=== PATIENT | female | born 1975 | race Caucasian/White ===

== ENCOUNTER 2017-03-26 22:28 | Emergency (ER) | payer MEDICAID, SELFPAY ==
[2017-03-26 22:29] VITALS: BP 148/89; PULSE 99; RESP 16; TEMP 36.7; O2SAT 98; BMI 32.5
[2017-03-26 23:17] VITALS: BP 145/78; PULSE 75; RESP 14; O2SAT 99
[2017-03-26 23:47] LABS: Bacteria 0 SEEN /hpf (None Seen); Mucous, Urine 0 SEEN /hpf (<or=2+)
[2017-03-26 23:51] LABS: Color, Urine Yellow (Yellow); Glucose, Dipstick Normal (Normal); Ketone-Dipstick 5 mg/dl (Negative); Leukocyte Esterase-Dipstick 500 /ul (Negative); Nitrite-Dipstick Negative (Negative); Occult Blood-Urine 25 /ul (Negative); Protein-Dipstick 30 mg/dl (Negative); Urine Bilirubin Dipstick Negative (Negative); Urine Clarity Sl. Cloudy (Clear); Urine Urobilinogen Normal (Normal)
[2017-03-26 23:58] LABS: Red Blood Cells-Urine 5-10 SEEN /hpf (0-5); Squamous Epithelial Cells - UA 50-100 SEEN /hpf (5-10); White Blood Cells 50-100 SEEN /hpf (0-5)
--- NOTE | 2017-03-27 00:14 | ED.DCSUM_ITS ---
- ER Visit Summary Date of Service: 03/27/17 Chief Complaint: [] Vaginitis History of Present Illness: The patient is a 41 F [] complaining of discomfort in the vaginal area consistent with previous yeast infection. Reports thin/ white discharge. Denies possibility of sexually transmitted disease. Denies vaginal bleeding. Reports mild dysuria. Denies fevers. No other complaints at this time. The patient does report using a new body wash after the onset of symptoms. Physical Examination: [] Afebrile, vital signs stable. Abdomen is soft nontender. Remainder of exam is unremarkable. Pelvic exam is deferred at this time. Test Results: [] Urinalysis negative. Dirty catch. Emergency Department Course and Treatment: [] Patient given Diflucan orally in the emergency department and encouraged to follow-up with her primary care physician. Treatment Plan: [] Follow-up with primary care physician. Disposition: [] Discharge, stable. Impression: [] Yeast vaginitis This note was generated with [employer] dictation software. It may contain incorrect words, spelling, and punctuation that were not noted in review of the chart prior to signing ED Disposition - Plan for ED Patient: Chief Complaint: Female C/O Referrals: Care Physician,No Primary [Primary Care Provider] -
--- NOTE | 2017-03-27 00:14 | ED.DEP ---
ED Disposition - Plan for ED Patient: Disposition: Home or Assisted Living Chief Complaint: Female C/O Instructions: Vaginal Infection: Yeast (Candidiasis) Referrals: Care Physician,No Primary [Primary Care Provider] -
[2017-03-27] MEDS: Fluconazole 100 MG Tablet 400 MG PO (00:17)
[2017-03-27 00:27] VITALS: PULSE 87; RESP 16; O2SAT 87
== END 2017-03-27 00:28 | disposition home or self-care (01) ==
PROVIDERS: Emergency Provider Emergency Medicine
DX: B37.3 Candidiasis of vulva and vagina (principal); Z72.0 Tobacco use
CPT/HCPCS: 81001; 99283

== ENCOUNTER 2017-03-31 22:36 | Emergency (ER) | payer MEDICAID, SELFPAY ==
[2017-03-31 22:40] VITALS: BP 163/98; PULSE 94; RESP 16; TEMP 36.1; O2SAT 100; BMI 45.0
[2017-03-31] MEDS: Fluconazole 100 MG Tablet 150 MG PO (22:53)
[2017-03-31] MEDS: Clindamycin HCl 150 MG Capsule 450 MG PO (22:53)
--- NOTE | 2017-03-31 22:53 | ED.DCSUM_ITS ---
- ER Visit Summary Date of Service: 03/31/17 Chief Complaint: Dental pain History of Present Illness: The patient is a 41 F with right sided dental pain. No trouble breathing, talking, or swallowing. No fever or systemic symptoms. She has follow-up with a dentist. She also complains of a yeast infection. Physical Examination: Vital signs unremarkable. Patient is nontoxic and in no acute distress. Sitting and breathing comfortably. Patient has diffuse dental decay, also involving the right mandibular molars. No sign of abscess. No tongue elevation. No trismus. Airway intact. Skin appears normal. No lymphadenopathy or meningeal findings. Test Results: None indicated Emergency Department Course and Treatment: Patient treated with clindamycin and Diflucan. Follow-up with dental. She may use [id number] remedies for pain. Treatment Plan: As above Disposition: Discharged Impression: 1. Dental pain 2. Vaginal candidiasis This note was generated with [employer] dictation software. It may contain incorrect words, spelling, and punctuation that were not noted in review of the chart prior to signing ED Disposition - Plan for ED Patient: Chief Complaint: Dental Referrals: Care Physician,No Primary [Primary Care Provider] -
--- NOTE | 2017-03-31 22:54 | ED.DEP ---
ED Disposition - Plan for ED Patient: Chief Complaint: Dental Instructions: ED Tooth Pain Prescriptions: Fluconazole [Diflucan] 150 mg PO X1 #1 tab Clindamycin [Cleocin] 450 mg PO TID #63 cap Additional Instructions: Follow up with your dentist
[2017-03-31 23:01] VITALS: RESP 16
--- NOTE | 2017-03-31 23:01 | ED.RN ---
REVIEWED D/C INSTRUCTIONS, FOLLOW UP CARE, PRESCRIPTIONS, AND S/S THAT WOULD WARRANT A RETURN TO THE ED WITH PT. PT VERBALIZED AN UNDERSTANDING AND DENIES FURTHER QUESTIONS FOR THIS RN. PT SKIN P/W/D, RESP EVEN AND UNLABORED, PT A&O X 3, NO DISTRESS NOTED. PT AMBULATED OUT OF ED, GAIT STEADY.
== END 2017-03-31 23:03 | disposition home or self-care (01) ==
PROVIDERS: Emergency Provider Emergency Medicine
DX: K02.9 Dental caries, unspecified (principal); B37.3 Candidiasis of vulva and vagina; Z72.0 Tobacco use
CPT/HCPCS: 99284

== ENCOUNTER 2017-04-26 12:17 | Emergency (ER) | payer MEDICAID, SELFPAY ==
[2017-04-26 12:19] VITALS: BP 160/86; PULSE 91; RESP 18; TEMP 36.3; O2SAT 95; BMI 38.7
[2017-04-26] MEDS: Azithromycin 250 MG Tablet 2000 MG PO (13:09)
[2017-04-26 13:10] LABS: Mucous, Urine 0 SEEN /hpf (<or=2+)
--- NOTE | 2017-04-26 13:15 | ED.DCSUM_ITS ---
- ER Visit Summary Date of Service: 04/26/17 Chief Complaint: Vaginal discharge History of Present Illness: The patient is a 41 F with vaginal discharge on and off for weeks. She was recently treated for Trichomonas a couple weeks ago but her symptoms returned. She has discharge with a foul odor. Denies any other associated symptoms. Physical Examination: Vital signs unremarkable. Patient is alert and oriented. No acute distress. Abdomen soft and nontender. Skin appears normal. Pelvic exam was deferred. Test Results: Urinalysis, test, gonorrhea and chlamydia testing pending. Emergency Department Course and Treatment: We contacted the lab. They were able to test for gonorrhea, chlamydia, and Trichomonas with urine testing. Results are pending. Patient was treated with azithromycin and Flagyl while awaiting results. Urinalysis is concerning for UTI. Culture was sent. The remaining cultures are also pending. Will treat the patient with Flagyl and Macrobid. She will be covered for gonorrhea, chlamydia, BV, trichomonas, and UTIs. She will be referred to OB for further care. Treatment Plan: As above Disposition: Discharged Impression: 1. Vaginal discharge 2. UTI This note was generated with [employer] dictation software. It may contain incorrect words, spelling, and punctuation that were not noted in review of the chart prior to signing ED Disposition - Plan for ED Patient: Chief Complaint: Female C/O Referrals: Care Physician,No Primary [Primary Care Provider] -
[2017-04-26 13:16] LABS: Internal QC Validated? YES +Cl - CLEAR BKGD; Pregnancy, Urine Negative Negative
[2017-04-26 13:20] LABS: Color, Urine Yellow (Yellow); Glucose, Dipstick Normal (Normal); Ketone-Dipstick 5 mg/dl (Negative); Leukocyte Esterase-Dipstick 500 /ul (Negative); Nitrite-Dipstick Negative (Negative); Occult Blood-Urine 50 /ul (Negative); Protein-Dipstick 30 mg/dl (Negative); Specific Gravity, Urine 1.025 (1.002-1.030); Urine Clarity Clear (Clear); Urine Urobilinogen 1 mg/dl (Normal)
[2017-04-26 13:28] LABS: Urine Bilirubin Dipstick 1 mg/dL (Negative)
[2017-04-26 13:32] LABS: Red Blood Cells-Urine 0-5 SEEN /hpf (0-5); White Blood Cells >100 SEEN /hpf (0-5)
[2017-04-26 13:33] LABS: Bacteria 2+ /hpf (None Seen); Squamous Epithelial Cells - UA 5-10 SEEN /hpf (5-10)
--- NOTE | 2017-04-26 14:41 | ED.DEP ---
ED Disposition - Plan for ED Patient: Chief Complaint: Female C/O Instructions: ED UTI Cystitis Female Prescriptions: Metronidazole [Flagyl] 500 mg PO Q12H #14 tab Nitrofurantoin Macrocrystals [Macrobid] 100 mg PO Q12 #14 cap Referrals: Jordon Silverman MD [STAFF PHYSICIAN] -
[2017-04-26 14:46] VITALS: BP 125/79; PULSE 74; RESP 22; O2SAT 98
--- NOTE | 2017-04-26 14:46 | ED.RN ---
THIS NURSE REVIEWED D/C INSTRUCTIONS WITH PT. PT VERBALIZED UNDERSTANDING OF INSTRUCTIONS. PT DENIES FURTHER NEEDS OR QUESTIONS AT THIS TIME. PT AMBULATES FROM ROOM ON OWN WITHOUT ASSISTANCE FROM STAFF
[2017-04-26 15:12] LABS: Chlamydia Trachomatis by PCR Negative (Negative); Neisserai gonorrhoeae by PCR Negative (Negative); Probe Check PASS; Sample Adequacy Control PASS; Specimen Processing Control PASS
== END 2017-04-26 14:48 | disposition home or self-care (01) ==
PROVIDERS: Emergency Provider Emergency Medicine
DX: N89.8 Other specified noninflammatory disorders of vagina (principal); N30.90 Cystitis, unspecified without hematuria; B96.89 Other specified bacterial agents as the cause of diseases classified elsewhere; Z72.0 Tobacco use
CPT/HCPCS: 81001; 81025; 87086; 87491; 87591; 99283

== ENCOUNTER 2017-08-03 11:40 | Emergency (ER) | payer MEDICAID, SELFPAY ==
--- NOTE | 2017-08-03 11:40 | DT_ITS ---
This patient was seen during an EMR downtime August 01, 2017 - August 08, 2017. This patient may have a combination of paper and electronic documentation or all paper documentation. All documentation is viewable within the e-chart portion of [facility] for each patient visit.
[2017-08-06 09:32] LABS: Basophil% 0.4 % (0-1); Eosinophils% 1.7 % (0-5); Hematocrit 46.4 % (37-47); Hemoglobin 14.8 g/dl (12.0-15.0); Lymphocyte % 29.5 % (19-41); Mean Corp Hgb Conc 31.9 g/gl (32-36); Mean Corpuscular Hgb 30.5 pg (27.0-32.0); Mean Corpuscular Volume 95.5 fL (81-99); Mean Platelet Vol. 11.6 fl (6.2-12.0); Monocyte% 7.3 % (0-10); Neutrophil % 60.8 % (47-70); POSITIVE COUNT NO; POSITIVE DIFFERENTIAL NO; POSITIVE MORPHOLOGY NO; Platelet Count 279 K/mm3 (150-450); RBC Distribution Width CV 14.3 % (11.6-14.6); RBC Distribution Width SD 48.8 fl (35.1-43.9); Red Blood Count 4.86 M/mm3 (4.2-5.4); White Blood Count 10.2 K/mm3 (4.4-11.0)
[2017-08-06 09:33] LABS: Absolute Lymphocyte Count 3.01 X10^3/ul (0.83-4.51); Absolute Neutrophil Count 6.2 X10^3/uL (2.0-7.7); Basophil# 0.04 X10^3/uL; Eosinophil# 0.17 X10^3/uL; Lymphocyte # 3.01 X10^3/ul (4.0); Monocyte# 0.74 X10^3/uL; Neutrophil # 6.21 X10^3/uL (2.7-7.7)
[2017-08-06 10:03] LABS: Anion Gap 5 (5-15); BUN 12 mg/dL (7-18); Calcium,Total 8.6 mg/dL (8.5-10.1); Chloride 109 mmol/L (98-107); Creatinine, Serum 0.86 mg/dL (0.55-1.02); EST Glomerular Filtration Rate 78 mL/min (>60); Est Glom Filt Rate - Afr Amer 95 mL/min (>60); Glucose 118 mg/dL (74-106); Potassium 4.1 mmol/L (3.5-5.1); Sodium Level 140 mmol/L (136-145); hCG Titer Quant., Serum < 1 mIU/mL (<9 non-preg)
[2017-08-06 11:04] LABS: Mucous, Urine 0 SEEN /hpf (<or=2+); White Blood Cells 0 SEEN /hpf (0-5)
[2017-08-06 11:10] LABS: Bacteria RARE /hpf (None Seen); Color, Urine Yellow (Yellow); Glucose, Dipstick NEGATIVE (Normal); Ketone-Dipstick Negative (Negative); Leukocyte Esterase-Dipstick 25 /ul (Negative); Nitrite-Dipstick Negative (Negative); Occult Blood-Urine 250 /ul (Negative); Protein-Dipstick Negative (Negative); Red Blood Cells-Urine 5-10 SEEN /hpf (0-5); Specific Gravity, Urine 1.015 (1.002-1.030); Squamous Epithelial Cells - UA 0-5 SEEN /hpf (5-10); Urine Bilirubin Dipstick Negative (Negative); Urine Clarity Clear (Clear); Urine Urobilinogen Normal (Normal)
== END 2017-08-03 14:00 | disposition home or self-care (01) ==
LOC: ED 08-05 12:29
PROVIDERS: Emergency Provider Emergency Medicine
DX: N92.0 Excessive and frequent menstruation with regular cycle (principal); F17.200 Nicotine dependence, unspecified, uncomplicated
CPT/HCPCS: 80048; 81001; 84702; 85025; 96372; 99283; A4216

== ENCOUNTER 2017-11-25 09:31 | Emergency (ER) | payer MEDICAID, SELFPAY ==
[2017-11-25 09:31] VITALS: BP 211/112; PULSE 94; RESP 18; TEMP 36.9; O2SAT 99; BMI 46.0
--- NOTE | 2017-11-25 09:39 | ED.VISSUMM ---
- ER Visit Summary Date of Service: 11/25/17 Chief Complaint: Dental pain History of Present Illness: The patient is a 42 F presents to the emergency department dental pain. Patient had the symptoms for the past 24 hours. She states she is not seen a dentist in about a year. She states that she began with a dull ache in her left lower jaw yesterday. It got better overnight and then worsened this morning. She describes hot and cold sensitivity. She is tried ibuprofen and Tylenol with some relief. She denies any change in voice. She denies any trouble speaking or swallowing. She has no history of immunosuppression. Physical Examination: Exam is relatively unremarkable. Patient has widespread dental disease. There is large cavity of tooth 18. There is tenderness to percussion. There is no definitive abscess. The submental space is soft. TMs are clear. Neck is supple. Test Results: [] Emergency Department Course and Treatment: The patient was initially hypertensive. I do feel that this is likely secondary to pain. Her repeat blood pressure was 165/91 taken with a manual cuff. She had no chest pain. She had no dyspnea. She has definitive evidence of dental infection. I do not suspect a dangerous process. She has no evidence of Juan angina. The patient be placed on clindamycin. She will be discharged home. Treatment Plan: [] Disposition: Discharge Impression: 1. Dental pain secondary to periapical abscess This note was generated with [employer] dictation software. It may contain incorrect words, spelling, and punctuation that were not noted in review of the chart prior to signing ED Disposition - Plan for ED Patient: Chief Complaint: Dental Instructions: ED Abscess Dental Prescriptions: Clindamycin [Cleocin] 300 mg PO 4X/DAY #80 cap Referrals: Care Physician,No Primary [Primary Care Provider] -
== END 2017-11-25 09:53 | disposition home or self-care (01) ==
LOC: ED 09:50
PROVIDERS: Emergency Provider Emergency Medicine
DX: K04.7 Periapical abscess without sinus (principal); E66.9 Obesity, unspecified; Z68.42 Body mass index [BMI] 45.0-49.9, adult; Z72.0 Tobacco use
CPT/HCPCS: 99282

== ENCOUNTER 2018-03-14 10:47 | Emergency (ER) | payer MEDICAID, SELFPAY ==
[2018-03-14 10:47] VITALS: BMI 45.0
[2018-03-14 10:48] VITALS: BP 187/89; PULSE 104; RESP 18; TEMP 36.6; O2SAT 97; BMI 46.1
--- NOTE | 2018-03-14 11:04 | ED.VISSUMM ---
- ER Visit Summary Date of Service: 03/14/18 Chief Complaint: Vaginal bleeding and pelvic pain History of Present Illness: The patient is a 42 F who presents for vaginal bleeding and pelvic pain since yesterday. Patient believes she may be . Last period was 1 month ago and was abnormally heavy. Patient states her period was due 10 days ago and she did not have any bleeding until yesterday. She took a total of 4 tests, 2 that were positive and 2 that were negative. The last negative one was 2 days ago. The last positive one was sometime last week. Patient started spotting yesterday and then began having blood clots this morning. She is also having lower abdominal cramping pain. She has taken several naproxen since yesterday for this pain. She denies fever, chest pain, shortness of breath, urinary symptoms, diarrhea. She is . No other medical issues. Physical Examination: Vital signs: afebrile, hemodynamically stable, no hypoxia on room air General: well nourished, well developed, in no distress Skin: warm, dry, no rash, no pallor HEENT: normocephalic and atraumatic; PERRL, EOMI, moist mucous membranes Cardiovascular: regular rate and rhythm without murmurs, no peripheral edema, 2+ pulses all distal extremities Respiratory: No increased work of breathing, lungs are clear to auscultation bilaterally, no rales, rhonchi or wheezing Abdominal: Abdomen is soft, mild tenderness in the suprapubic region with normoactive bowel sounds, no guarding or rebound, no masses MSK: Moves all extremities, no deformities, normal strength Neuro: Awake and alert, oriented ?4. No facial droop, sensation and motor function intact and symmetric Test Results: Abnormal Lab Results 03/14/18 03/14/18 03/14/18 11:25 11:25 11:25 WBC 11.0 RBC 4.59 Hgb 14.7 Hct 44.6 MCV 97.2 MCH 32.0 MCHC 33.0 RDW 14.1 RDW Differential 48.7 H Plt Count 219 MPV 11.4 Immature Gran % (Auto) 0.400 Neut % (Auto) 66.5 Lymph % (Auto) 23.6 [place] % (Auto) 7.6 Eos % (Auto) 1.4 Baso % (Auto) 0.5 Absolute Neuts (auto) 7.3 Absolute Lymphs (auto) 2.59 Total Counted Not Reportable Differential Comment SCANNED HCG, Quant < 1 Blood Type A POSITIVE Emergency Department Course and Treatment: Patient presents with abdominal cramping and vaginal bleeding, concerned that she may be having a miscarriage. A beta hCG was performed and was less than 1. This is consistent with patient not being . Because she was due for her menstrual period 10 days ago, this is likely a late period. Patient left without her discharge paperwork and without as discussing the results of her testing. We attempted to call patient to let her know she was not but were unable to get hold of her. At this time I am unaware of her having called back. Treatment Plan: [] Disposition: [] Impression: Dysmenorrhea, menstruation This note was generated with [employer] dictation software. It may contain incorrect words, spelling, and punctuation that were not noted in review of the chart prior to signing ED Disposition - Plan for ED Patient: Disposition: Home or Assisted Living Chief Complaint: Instructions: ED Cramping Menstrual Referrals: Care Physician,No Primary [Primary Care Provider] -
[2018-03-14 11:41] LABS: Absolute Lymphocyte Count 2.59 X10^3/ul (0.83-4.51); Absolute Neutrophil Count 7.3 X10^3/uL (2.0-7.7); Basophil# 0.06 X10^3/uL; Basophil% 0.5 % (0-1); Eosinophil# 0.15 X10^3/uL; Eosinophils% 1.4 % (0-5); Hematocrit 44.6 % (37-47); Hemoglobin 14.7 g/dl (12.0-15.0); Lymphocyte # 2.59 X10^3/ul (4.0); Lymphocyte % 23.6 % (19-41); Mean Corpuscular Volume 97.2 fL (81-99); Mean Platelet Vol. 11.4 fl (6.2-12.0); Monocyte# 0.83 X10^3/uL; Monocyte% 7.6 % (0-10); Neutrophil # 7.29 X10^3/uL (2.7-7.7); Neutrophil % 66.5 % (47-70); Platelet Count 219 K/mm3 (150-450); RBC Distribution Width CV 14.1 % (11.6-14.6); RBC Distribution Width SD 48.7 fl (35.1-43.9); Red Blood Count 4.59 M/mm3 (4.2-5.4)
[2018-03-14 11:42] LABS: Differential Indicated SCAN CRITERIA MET; POSITIVE COUNT NO; POSITIVE DIFFERENTIAL NO; POSITIVE MORPHOLOGY YES
[2018-03-14 12:05] LABS: hCG Titer Quant., Serum < 1 mIU/mL (<9 non-preg)
[2018-03-14 12:15] LABS: Differential Comment SCANNED
--- NOTE | 2018-03-14 12:24 | ED.RN ---
pt has left. she stated she needed to go get her son from school. (-) and Dr. Segovia stated she was not planning to do pelvic exam based on that. will attempt to call pt with results.
--- NOTE | 2018-03-14 12:28 | ED.RN ---
attempt made x2 to reach pt on her cell phone listed. unable at this time.
--- NOTE | 2018-03-14 12:31 | ED.DEP ---
ED Disposition - Plan for ED Patient: Disposition: Home or Assisted Living Chief Complaint: Instructions: ED Cramping Menstrual Referrals: Care Physician,No Primary [Primary Care Provider] -
== END 2018-03-14 12:34 | disposition home or self-care (01) ==
PROVIDERS: Emergency Provider Emergency Medicine
DX: N94.6 Dysmenorrhea, unspecified (principal); Z72.0 Tobacco use
CPT/HCPCS: 36415; 84702; 85025; 86900; 99282

== ENCOUNTER 2021-01-18 22:17 | Emergency (ER) | payer MEDICAID, SELFPAY ==
[2021-01-18 22:18] VITALS: BP 160/79; PULSE 102; RESP 18; TEMP 36.5; O2SAT 97; BMI 41.3
[2021-01-18 22:48] LABS: Mucous, Urine 0 SEEN /hpf (<or=2+)
[2021-01-18 22:51] LABS: Color, Urine Yellow (Yellow); Glucose, Dipstick 1000 mg/dl (Normal); Ketone-Dipstick Negative (Negative); Leukocyte Esterase-Dipstick 500 /ul (Negative); Nitrite-Dipstick Positive (Negative); Occult Blood-Urine 150 /ul (Negative); Protein-Dipstick 30 mg/dl (Negative); Specific Gravity, Urine 1.015 (1.002-1.030); Urine Bilirubin Dipstick Negative (Negative); Urine Clarity Cloudy (Clear); Urine Urobilinogen Normal (Normal)
[2021-01-18 22:57] LABS: White Blood Cells >100 SEEN /hpf (0-5)
[2021-01-18 22:59] LABS: Red Blood Cells-Urine 25-50 SEEN /hpf (0-5)
[2021-01-18 23:00] LABS: Squamous Epithelial Cells - UA 5-10 SEEN /hpf (5-10)
[2021-01-18 23:01] LABS: Bacteria 2+ /hpf (None Seen)
--- NOTE | 2021-01-18 23:13 | EX.ED.DYSGE1 ---
HPI History of Present Illness Chief Complaint: Complaint Narrative Narrative: Patient presents with dysuria urgency and frequency and some slight suprapubic pain this is been ongoing for the past few days she has tried [id number] Azo. No fever chills. No flank pain. PFSH PFSH Medical History no medical history Home Medications sulfamethoxazole-trimethoprim [Bactrim DS] 1 tab PO BID #14 tab 01/18/21 [Rx Last Taken Unknown] Allergy/AdvReac Type Severity Reaction Status Date / Time diflunisal [From Dolobid] Allergy Shortness Verified 01/18/21 22:19 of breath Penicillins AdvReac Vomiting Verified 01/18/21 22:19 Social History Smoking Status: Current every day smoker tobacco type: cigarettes ROS ROS ED ROS Narrative Past medical history: Reviewed Medications: Reviewed Social history: Noncontributory Review of systems: All systems negative except as indicated General: No fever Cardiovascular: No chest pain Respiratory: No shortness of breath or cough Gastrointestinal: Some suprapubic pain. No nausea vomiting or diarrhea Genitourinary: As in HPI Musculoskeletal: Denies myalgias no difficulty with ambulation Skin: No rash Hematologic: No easy bleeding or easy bruising EXAM Physical Exam Narrative Exam Narrative: Physical exam General: Well nourished, Well developed, No Acute Distress Head: Normocephalic, Atraumatic ENT: Moist mucous membranes Cardiovascular: Regular rate, Regular rhythm Respiratory: No distress, CTA bilaterally Abdomen: Soft, there is suprapubic pain, this is mild there is no guarding or rebound no right upper quadrant pain no right lower quadrant pain or pain in McBurney's. Back: Nontender, Normal Inspection. Negative for: CVA tenderness Extremities: Nontender, No edema Skin: Normal color, No rash Neurological: Alert, Normal Strength, Normal Sensation Psychological: Normal affect Const Vital Signs: 01/18/21 22:18 Temperature 97.7 F L Temperature Source Temporal Pulse Rate 102 H Respiratory Rate 18 Blood Pressure 160/79 H Blood Pressure Mean 106 Pulse Ox 97 Oxygen Delivery Method Room Air MDM MDM MDM Narrative Medical decision making narrative: Patient has a positive urinalysis. I will treat and culture. Lab Data Labs: Laboratory Results - last 24 hr 01/18/21 22:44 Urine Color Yellow Urine Clarity Cloudy Urine pH 6.0 Ur Specific [place] 1.015 Urine Protein 30 H Urine Glucose (UA) 1000 H Urine Ketones Negative Urine Occult Blood 150 H Urine Nitrite Positive H Urine Bilirubin Negative Urine Urobilinogen Normal Ur Leukocyte Esterase 500 H Urine RBC 25-50 SEEN Urine WBC >100 SEEN Ur Squamous Epith Cells 5-10 SEEN Urine Bacteria 2+ Urine Mucus 0 SEEN Discharge Plan Triage Chief Complaint: Complaint Other Complaint: Abd Pain ED Provider: Charlie Lipscomb Dx/Rx/DC Orders Clinical Impression: UTI (urinary tract infection) Instructions: Urinary Tract Infections in Women Prescriptions: New sulfamethoxazole-trimethoprim [Bactrim DS] 800-160 mg tablet 1 tab PO BID Qty: 14 RF: 0 Primary Care Provider: Care Physician,No Primary Referrals: Care Physician,No Primary [Primary Care Provider] - 3-5 Days Disposition Disposition: Home, Self Care
[2021-01-18] MEDS: Smz/Tmp Ds Tablet 1 TABLET PO (23:29)
== END 2021-01-18 23:30 | disposition home or self-care (01) ==
PROVIDERS: Emergency Provider Emergency Medicine
DX: N39.0 Urinary tract infection, site not specified (principal); F17.210 Nicotine dependence, cigarettes, uncomplicated
CPT/HCPCS: 81001; 99283

== ENCOUNTER 2021-06-11 16:03 | Emergency (ER) | payer MEDICAID, SELFPAY ==
[2021-06-11 16:04] VITALS: BP 168/103; PULSE 88; RESP 18; TEMP 35.9; O2SAT 94; BMI 40.2
--- NOTE | 2021-06-11 16:22 | EDS_ITS ---
HPI <VERONA Myles - Last Filed: 06/11/21 19:15> History of Present Illness Chief Complaint: Hyperglycemia Narrative Narrative: 46-year-old female with no significant medical history who does not see a doctor greater than 10 years presents to the emergency department after being referred from urgent care for elevated blood sugar. Patient went to urgent care because she was having burning, itching to her vaginal area, denies any urinary symptoms. Patient states has been ongoing for 1 week, they did a blood sugar there which was over 400. Patient was referred here. Patient denies any blurred vision, excess thirst, fever or chills PFSH <VERONA Myles - Last Filed: 06/11/21 19:15> PFSH Home Medications sulfamethoxazole-trimethoprim [Bactrim DS] 1 tab PO BID #14 tab 01/18/21 [Rx Last Taken Unknown] metformin 500 mg PO BID 30 Days #60 tab 06/11/21 [Rx Last Taken Unknown] Allergy/AdvReac Type Severity Reaction Status Date / Time diflunisal [From Dolobid] Allergy Shortness Verified 06/11/21 16:04 of breath Penicillins AdvReac Vomiting Verified 06/11/21 16:04 Social History Smoking Status: Current every day smoker tobacco type: cigarettes ROS <VERONA Myles - Last Filed: 06/11/21 19:15> ROS ED ROS Narrative Constitutional: Negative for fever, chills, weight loss, weakness Eyes: Negative for vision loss, vision change, double vision ENT: Negative for any sore throat, ear pain, congestion Cardiovascular: Negative for any chest pain, tightness, palpitations, racing heartbeat Respiratory: Negative for any cough, sputum production, hemoptysis, shortness of breath, shortness of breath on exertion, orthopnea Gastrointestinal: Negative for any abdominal pain, nausea, vomiting, diarrhea, constipation, blood in stool, blood in vomit : Negative for any urinary frequency, incontinence, dysuria, retention, blood in urine. Positive for vaginal itching, redness to the area Muscle skeletal: Negative for any muscle joint pain, stiffness, myalgias, arthralgias, neck pain, back pain Neurological: Negative for any headache, dizziness, syncope, numbness or tingling Skin: Negative for any rashes, lumps, itching, abrasions, lacerations Psychiatric: Negative for any depression, anxiety, stress, suicidal ideation, homicidal ideation Hematologic: Negative for any easy bruising, excessive bruising, easy bleeding Allergies: Negative for any eczema, hives, rash EXAM <VERONA Myles - Last Filed: 06/11/21 19:15> Physical Exam Narrative Exam Narrative: Vital signs reviewed. Patient appears well, patient appears nontoxic, patient's blood sugars 375 on initial arrival here. HEET: Head normocephalic atraumatic, TMs clear bilaterally. Posterior pharynx is clear, moist mucous membranes. Nares clear bilaterally. Neck: Supple with no lymphadenopathy or tenderness. No signs of meningismus, negative jolt sign. Cardiac: Regular rate and rhythm no murmurs gallops or rubs, equal peripheral pulses bilaterally. Respiratory: Lungs clear to auscultation bilaterally. No chest tenderness. Abdomen: Soft, nontender, nondistended. No abdominal bruit or pulsatile masses. No hepatosplenomegaly Extremities: No peripheral edema, no signs of gross trauma or deformity. Active full range of motion of all extremities. Neuro: Cranial nerves II through XII intact, no focal neurological deficits. Skin: Clean dry and intact with no rash, purpura, petechiae, vesicles or pustules. Backslash flank: No CVA tenderness, no midline spinal tenderness, no deformity. Psych: Normal mood and affect. No SI, HI or acute psychosis. Const Vital Signs: 06/11/21 16:04 06/11/21 16:15 06/11/21 18:44 Temperature 96.7 F L Temperature Source Temporal Pulse Rate 88 70 Respiratory Rate 18 Respiratory Effort Normal Respiratory Pattern Normal Blood Pressure 168/103 H 182/99 H Blood Pressure Mean 124 126 Pulse Ox 94 Positive well nourished, well developed and obese General Appearance ED: well developed Nutritional Appearance: obese <Dr. Naresh Price MD - Last Filed: 06/11/21 19:15> Physical Exam Const Vital Signs: 06/11/21 16:04 06/11/21 16:15 06/11/21 18:44 Temperature 96.7 F L Temperature Source Temporal Pulse Rate 88 70 Respiratory Rate 18 Respiratory Effort Normal Respiratory Pattern Normal Blood Pressure 168/103 H 182/99 H Blood Pressure Mean 124 126 Pulse Ox 94 MDM <VERONA Myles - Last Filed: 06/11/21 19:15> [facility] Narrative Medical decision making narrative: Patient appears well, patient appears nontoxic, vital signs are stable. Patient presents to the emergency department with complaints of vaginal itching, as well as hyperglycemia at the urgent care. Patient did receive more of a work-up here in the emergency department, patient received IV fluids, patient's CBC shows a white blood count of 15.1, patient's chemistry showed a low sodium of this could be secondary to hyperglycemia, patient potassium was unremarkable, patient's kidney function was within normal limits, patient's glucose was elevated at 372. She did receive IV fluids, she did receive Diflucan for her yeast infection. Patient urinalysis was negative for any infection, patient is not currently in diabetic ketoacidosis. Patient at this time will be diagnosed with type 2 diabetes, patient currently does not have a doctor, she will be given 1 here prior to discharge. She will be given metformin 500 mg twice a day. I did have a long conversation with the patient, she verbally understands the importance of following up with a primary care provider to see her type 2 diabetes. Patient verbally understands importance of follow-up and to take the medication as prescribed. She was given strict return precautions to return for any blurred vision, extreme thirst, fevers chills nausea vomiting. At this time, patient is stable for discharge Lab Data Labs: Laboratory Results - last 24 hr 06/11/21 06/11/21 06/11/21 16:10 16:17 16:17 WBC 15.1 H RBC 5.04 Hgb 16.0 H Hct 47.7 H MCV 94.6 MCH 31.7 MCHC 33.5 RDW Std Deviation 47.8 H RDW Coeff of Eulalio 13.9 Plt Count 262 MPV 11.5 Immature Gran % (Auto) 0.900 Neut % (Auto) 68.6 Lymph % (Auto) 22.9 [place] % (Auto) 6.4 Eos % (Auto) 0.7 Baso % (Auto) 0.5 Absolute Neuts (auto) 10.4 H Absolute Lymphs (auto) 3.46 Nucleated RBC % 0 Differential Comment Sodium 132 L Potassium 4.6 Chloride 103 Carbon Dioxide 25.0 Anion Gap 4 L BUN 5 L Creatinine 0.90 Estim Creat Clear Calc 63.09 Est GFR (MDRD) Af Amer 88 Est GFR (MDRD) Non-Af 72 BUN/Creatinine Ratio 5.6 L Glucose 372 H Lactic Acid Calcium 8.5 Urine Color Yellow Urine Clarity Clear Urine pH 5.0 Ur Specific [place] 1.020 Urine Protein 30 H Urine Glucose (UA) 1000 H Urine Ketones Negative Urine Occult Blood Negative Urine Nitrite Negative Urine Bilirubin Negative Urine Urobilinogen Normal Ur Leukocyte Esterase Negative Urine RBC 0 SEEN Urine WBC 0 SEEN Ur Squamous Epith Cells 0-5 SEEN Urine Bacteria 0 SEEN Urine Mucus 0 SEEN Urine Yeast 1+ Acetone Level POC Glucose 06/11/21 06/11/21 06/11/21 16:17 16:19 16:30 WBC RBC Hgb Hct MCV MCH MCHC RDW Std Deviation RDW Coeff of Eulalio Plt Count MPV Immature Gran % (Auto) Neut % (Auto) Lymph % (Auto) [place] % (Auto) Eos % (Auto) Baso % (Auto) Absolute Neuts (auto) Absolute Lymphs (auto) Nucleated RBC % Differential Comment Sodium Potassium Chloride Carbon Dioxide Anion Gap BUN Creatinine Estim Creat Clear Calc Est GFR (MDRD) Af Amer Est GFR (MDRD) Non-Af BUN/Creatinine Ratio Glucose Lactic Acid 2.1 H* Calcium Urine Color Urine Clarity Urine pH Ur Specific [place] Urine Protein Urine Glucose (UA) Urine Ketones Urine Occult Blood Urine Nitrite Urine Bilirubin Urine Urobilinogen Ur Leukocyte Esterase Urine RBC Urine WBC Ur Squamous Epith Cells Urine Bacteria Urine Mucus Urine Yeast Acetone Level NEGATIVE POC Glucose 375 H 06/11/21 18:42 WBC RBC Hgb Hct MCV MCH MCHC RDW Std Deviation RDW Coeff of Eulalio Plt Count MPV Immature Gran % (Auto) Neut % (Auto) Lymph % (Auto) [place] % (Auto) Eos % (Auto) Baso % (Auto) Absolute Neuts (auto) Absolute Lymphs (auto) Nucleated RBC % Differential Comment Sodium Potassium Chloride Carbon Dioxide Anion Gap BUN Creatinine Estim Creat Clear Calc Est GFR (MDRD) Af Amer Est GFR (MDRD) Non-Af BUN/Creatinine Ratio Glucose Lactic Acid Calcium Urine Color Urine Clarity Urine pH Ur Specific [place] Urine Protein Urine Glucose (UA) Urine Ketones Urine Occult Blood Urine Nitrite Urine Bilirubin Urine Urobilinogen Ur Leukocyte Esterase Urine RBC Urine WBC Ur Squamous Epith Cells Urine Bacteria Urine Mucus Urine Yeast Acetone Level POC Glucose 316 H ABG Data ABG results: ABG 06/11/21 18:20 Specimen Type ART Sample Site L Radial pH 7.38 Bicarbonate Actual 22.8 Total CO2 24 Base Excess -2 O2 Saturation 95 ABG pCO2 38.4 ABG pO2 74 L Ryan Test Positive O2 Delivery Device Room Air <Dr. Naresh Price MD - Last Filed: 06/11/21 19:15> MDM MDM Narrative Medical decision making narrative: I have personally performed a face to face assessment of the patient and have reviewed the GARRET Note. I performed a substantive portion of the visit including all aspects of the following. My skaggs findings include: History is remarkable for yeast infection. Yeast infection are to proxy 1 week ago. She had increased urination for greater than a week. There is a strong family history of diabetes. Patient denies polyuria or polydipsia. She denies nocturia. She denies fever, chills night sweats. Denies nausea or vomiting. She denies abdominal pain. She denies blurred vision. She has no other complaints. Exam is elevated blood pressure 168/103. Patient is obese with a BMI of 40.2. Patient has cholesterol plaques noted. HEENT exam is otherwise unremarkable. Heart is regular. Lungs are crustacean. Abdomen soft nontender. There is no dermatologic lesions noted i.e. rash, lesions and she has not pale and there is no jaundice. Medical Decision Making patient with new onset diabetes. Will obtain appropriate blood work to determine if patient is in DKA or not. She received a liter of normal saline. She is potentially a candidate for outpatient follow- up. Other additions or changes: [None] Lab Data Labs: Laboratory Results - last 24 hr 06/11/21 06/11/21 06/11/21 16:10 16:17 16:17 WBC 15.1 H RBC 5.04 Hgb 16.0 H Hct 47.7 H MCV 94.6 MCH 31.7 MCHC 33.5 RDW Std Deviation 47.8 H RDW Coeff of Eulalio 13.9 Plt Count 262 MPV 11.5 Immature Gran % (Auto) 0.900 Neut % (Auto) 68.6 Lymph % (Auto) 22.9 [place] % (Auto) 6.4 Eos % (Auto) 0.7 Baso % (Auto) 0.5 Absolute Neuts (auto) 10.4 H Absolute Lymphs (auto) 3.46 Nucleated RBC % 0 Differential Comment Sodium 132 L Potassium 4.6 Chloride 103 Carbon Dioxide 25.0 Anion Gap 4 L BUN 5 L Creatinine 0.90 Estim Creat Clear Calc 63.09 Est GFR (MDRD) Af Amer 88 Est GFR (MDRD) Non-Af 72 BUN/Creatinine Ratio 5.6 L Glucose 372 H Lactic Acid Calcium 8.5 Urine Color Yellow Urine Clarity Clear Urine pH 5.0 Ur Specific [place] 1.020 Urine Protein 30 H Urine Glucose (UA) 1000 H Urine Ketones Negative Urine Occult Blood Negative Urine Nitrite Negative Urine Bilirubin Negative Urine Urobilinogen Normal Ur Leukocyte Esterase Negative Urine RBC 0 SEEN Urine WBC 0 SEEN Ur Squamous Epith Cells 0-5 SEEN Urine Bacteria 0 SEEN Urine Mucus 0 SEEN Urine Yeast 1+ Acetone Level POC Glucose 06/11/21 06/11/21 06/11/21 16:17 16:19 16:30 WBC RBC Hgb Hct MCV MCH MCHC RDW Std Deviation RDW Coeff of Eulalio Plt Count MPV Immature Gran % (Auto) Neut % (Auto) Lymph % (Auto) [place] % (Auto) Eos % (Auto) Baso % (Auto) Absolute Neuts (auto) Absolute Lymphs (auto) Nucleated RBC % Differential Comment Sodium Potassium Chloride Carbon Dioxide Anion Gap BUN Creatinine Estim Creat Clear Calc Est GFR (MDRD) Af Amer Est GFR (MDRD) Non-Af BUN/Creatinine Ratio Glucose Lactic Acid 2.1 H* Calcium Urine Color Urine Clarity Urine pH Ur Specific [place] Urine Protein Urine Glucose (UA) Urine Ketones Urine Occult Blood Urine Nitrite Urine Bilirubin Urine Urobilinogen Ur Leukocyte Esterase Urine RBC Urine WBC Ur Squamous Epith Cells Urine Bacteria Urine Mucus Urine Yeast Acetone Level NEGATIVE POC Glucose 375 H 06/11/21 18:42 WBC RBC Hgb Hct MCV MCH MCHC RDW Std Deviation RDW Coeff of Eulalio Plt Count MPV Immature Gran % (Auto) Neut % (Auto) Lymph % (Auto) [place] % (Auto) Eos % (Auto) Baso % (Auto) Absolute Neuts (auto) Absolute Lymphs (auto) Nucleated RBC % Differential Comment Sodium Potassium Chloride Carbon Dioxide Anion Gap BUN Creatinine Estim Creat Clear Calc Est GFR (MDRD) Af Amer Est GFR (MDRD) Non-Af BUN/Creatinine Ratio Glucose Lactic Acid Calcium Urine Color Urine Clarity Urine pH Ur Specific [place] Urine Protein Urine Glucose (UA) Urine Ketones Urine Occult Blood Urine Nitrite Urine Bilirubin Urine Urobilinogen Ur Leukocyte Esterase Urine RBC Urine WBC Ur Squamous Epith Cells Urine Bacteria Urine Mucus Urine Yeast Acetone Level POC Glucose 316 H ABG Data ABG results: ABG 06/11/21 18:20 Specimen Type ART Sample Site L Radial pH 7.38 Bicarbonate Actual 22.8 Total CO2 24 Base Excess -2 O2 Saturation 95 ABG pCO2 38.4 ABG pO2 74 L Ryan Test Positive O2 Delivery Device Room Air Discharge Plan Triage Chief Complaint: Hyperglycemia ED Midlevel Provider: Charlie Yung ED Provider: Naresh Price Dx/Rx/DC Orders Clinical Impression: Acute hyperglycemia, New onset type 2 diabetes mellitus, Infection due to yeast Instructions: Managing Type 2 Diabetes, Managing Your Glucose Level ..., ED Diabetic Hyperglycemia, ED Fungal Skin Infection (Tinea) Prescriptions: New metformin 500 mg tablet 500 mg PO BID 30 Days Qty: 60 RF: 0 No Action sulfamethoxazole-trimethoprim [Bactrim DS] 800-160 mg tablet 1 tab PO BID Qty: 14 RF: 0 Primary Care Provider: Care Physician,No Primary Referrals: Rodrigo Mcintosh MD [STAFF PHYSICIAN] - (You need to call for follow-up appointment. You currently have diabetes, this will not go away, take your medicine as prescribed, you need to have care from a primary care provider.) Care Physician,No Primary [Primary Care Provider] - Activity Restrictions/Additional Instructions: Take medications as prescribed. Please call the primary care provider tomorrow to set up a follow-up Print Language: Bhutanese Disposition Disposition: Home, Self Care
[2021-06-11] MEDS: 0.9% Normal Saline 1,000 ML 1000 ML IV (16:30)
[2021-06-11 16:32] LABS: Bacteria 0 SEEN /hpf (None Seen); Mucous, Urine 0 SEEN /hpf (<or=2+); Red Blood Cells-Urine 0 SEEN /hpf (0-5); White Blood Cells 0 SEEN /hpf (0-5)
[2021-06-11 16:36] LABS: Bedside Glucose 375 mg/dL (74-106)
[2021-06-11 16:41] LABS: Absolute Lymphocyte Count 3.46 X10^3/uL (0.83-4.51); Absolute Neutrophil Count 10.4 X10^3/uL (2.0-7.7); Basophil# 0.07 X10^3/uL; Basophil% 0.5 % (0-1); Eosinophils% 0.7 % (0-5); Hematocrit 47.7 % (37-47); Lymphocyte # 3.46 X10^3/ul (0.83-4.51); Lymphocyte % 22.9 % (19-41); Mean Corp Hgb Conc 33.5 g/dL (32-36); Mean Corpuscular Hgb 31.7 pg (27.0-32.0); Mean Corpuscular Volume 94.6 fL (81-99); Mean Platelet Vol. 11.5 fl (6.2-12.0); Monocyte# 0.97 X10^3/uL; Monocyte% 6.4 % (0-10); NRBC Flagged by Analyzer 0 % (0-5); Neutrophil # 10.35 X10^3/uL (2.7-7.7); Neutrophil % 68.6 % (47-70); POSITIVE COUNT YES; Platelet Count 262 K/mm3 (150-450); RBC Distribution Width CV 13.9 % (11.6-14.6); RBC Distribution Width SD 47.8 fl (35.1-43.9); Red Blood Count 5.04 M/mm3 (4.2-5.4); White Blood Count 15.1 K/mm3 (4.4-11.0)
[2021-06-11 16:47] LABS: Color, Urine Yellow (Yellow); Glucose, Dipstick 1000 mg/dl (Normal); Ketone-Dipstick Negative (Negative); Leukocyte Esterase-Dipstick Negative /ul (Negative); Nitrite-Dipstick Negative (Negative); Occult Blood-Urine Negative /ul (Negative); Protein-Dipstick 30 mg/dl (Negative); Urine Bilirubin Dipstick Negative (Negative); Urine Clarity Clear (Clear); Urine Urobilinogen Normal (Normal)
[2021-06-11 17:02] LABS: Squamous Epithelial Cells - UA 0-5 SEEN /hpf (5-10); Yeast-Urine 1+ /hpf (None Seen)
[2021-06-11] MEDS: Fluconazole 100 MG Tablet 150 MG PO (17:05)
[2021-06-11 17:09] LABS: Anion Gap 4 (5-15); BUN 5 mg/dL (7-18); BUN/Creat Ratio 5.6 RATIO (10-20); Calcium,Total 8.5 mg/dL (8.5-10.1); Chloride 103 mmol/L (98-107); EST Glomerular Filtration Rate 72 mL/min (>60); Est Glom Filt Rate - Afr Amer 88 mL/min (>60); Estimated Creatinine Clearance 63.09 ml/min; Glucose 372 mg/dL (74-106); Potassium 4.6 mmol/L (3.5-5.1); Sodium Level 132 mmol/L (136-145)
[2021-06-11 17:13] LABS: Differential Indicated SCAN CRITERIA MET
[2021-06-11 17:38] LABS: Lactic Acid 2.1 mmol/L (0.4-1.9)
[2021-06-11 18:26] LABS: Allen Test Positive; Base Excess -2 mmol/L (-2 to +2); Bicarbonate 22.8 mmol/L (22-26); Blood Gas Specimen Type ART; O2 Delivery Device Room Air; PO2 74 mmHG (75-100); SITE L Radial; SO2 95 % (95-99); Total Carbon Dioxide 24 mmol/L; pCO2 38.4 mmHg (35-45); pH 7.38 (7.35-7.45)
[2021-06-11 18:44] VITALS: BP 182/99; PULSE 70
[2021-06-11 18:46] LABS: Bedside Glucose 316 mg/dL (74-106)
[2021-06-11 19:41] VITALS: PULSE 74; RESP 14
[2021-06-11 20:35] LABS: Reflex Lactate? Y
== END 2021-06-11 19:41 | disposition home or self-care (01) ==
PROVIDERS: Nurse Practitioner; Emergency Provider Emergency Medicine; Visit Provider Emergency Medicine
DX: E11.65 Type 2 diabetes mellitus with hyperglycemia (principal); Z68.41 Body mass index [BMI] 40.0-44.9, adult; R03.0 Elevated blood-pressure reading, without diagnosis of hypertension; F17.210 Nicotine dependence, cigarettes, uncomplicated; B37.9 Candidiasis, unspecified; E66.9 Obesity, unspecified
CPT/HCPCS: 36600; 80048; 81001; 82009; 82803; 82962; 83605; 85025; 96360; 96361; 99282; J7030; A4216

== ENCOUNTER 2023-02-18 15:08 | Emergency (ER) | payer MEDICAID, SELFPAY ==
[2023-02-18 15:09] VITALS: BP 170/86; PULSE 80; RESP 16; TEMP 36.4; O2SAT 98; BMI 43.4
--- NOTE | 2023-02-18 15:34 | RAD_ITS ---
STUDY: X-RAY - RIGHT RADIUS AND ULNA REASON FOR EXAM: Female, 47 years old. Injury TECHNIQUE: 2 view(s) of the forearm. COMPARISON: None. FINDINGS: There is no demonstrated soft tissue swelling. Normal visualized radius. Normal visualized ulna. RAD/Forearm 2 Views IMPRESSION: Normal x-ray examination of the radius and ulna. Electronically Signed: Armando Vázquez MD at 15:50 EST ,
--- NOTE | 2023-02-18 15:36 | RAD_ITS ---
STUDY: X-RAY - RIGHT HUMERUS REASON FOR EXAM: Female, 47 years old. Pain following recent fall. TECHNIQUE: 2 view(s) of the humerus. COMPARISON: None. FINDINGS: Normal visualized humerus. There is no demonstrated fracture or osseous destructive process. There is no demonstrated soft tissue abnormality. RAD/Humerus min 2 Views IMPRESSION: Normal x-ray examination of the humerus. Electronically Signed: Armando Vázquez MD at 15:49 EST ,
--- NOTE | 2023-02-18 15:36 | EDS_ITS ---
HPI History of Present Illness Chief Complaint: Upper Extremity Injury Detail of Chief Complaint: Right arm pain status post fall Informant: patient Onset/Context/Timing Onset: Days Context: Gradual Onset Timing: Intermittent Narrative Narrative: Patient presents with intermittent pain to the right upper extremity. A couple days ago after some snow and ice patient stepped out of her house and slipped. She reached with her right arm to grab onto the siding at the side of the house and slipped. Since that time she has had intermittent pain in her right forearm that shoots up her arm. She is right-hand dominant. She will occasionally have paresthesias in her fingers. She denies neck or shoulder pain. PFSH PFSH Medical History no medical history no medical history Home Medications sulfamethoxazole 800 mg-trimethoprim 160 mg tablet (Bactrim DS) 1 tab PO BID #14 tabs 01/18/21 [Rx Last Taken Unknown] metformin 500 mg tablet 500 mg PO BID 30 days #60 tabs 06/11/21 [Rx Last Taken Unknown] naproxen 500 mg tablet (Naprosyn) 500 mg PO BID PRN pain #20 tabs 02/18/23 [Rx Last Taken Unknown] Allergy/AdvReac Type Severity Reaction Status Date / Time diflunisal [From Dolobid] Allergy Shortness Verified 02/18/23 15:11 of breath Penicillins AdvReac Vomiting Verified 02/18/23 15:11 Social History Smoking Status: Current every day smoker tobacco type: cigarettes ROS ROS ED Constitutional Constitutional ED: Denies chills or fever(s) Eyes Eyes: Denies discharge from eye(s) ENT ENT ED: Denies discharge from eye(s), rhinorrhea or sore throat Cardiovascular Cardiovascular: Denies chest pain Respiratory/Chest Respiratory/Chest: Denies cough or dyspnea Gastrointestinal Gastrointestinal: Denies abdominal pain, nausea or vomiting Musculoskeletal Musculoskeletal: Reports extremity pain; Denies back pain Integumentary Denies Abrasions or rash Neurologic Neurologic: Reports paresthesias; Denies headache(s) or weakness Psychiatric Psychiatric: Denies anxiety or depression Allergic/Immunologic Allergic/Immunologic ED: Denies lip swelling or urticaria EXAM Physical Exam Const Vital Signs: 02/18/23 15:09 Temperature 97.6 F L Temperature Source Temporal Pulse Rate 80 Respiratory Rate 16 Blood Pressure 170/86 H Blood Pressure Mean 114 Pulse Ox 98 Oxygen Delivery Method Room Air Positive well nourished and well developed General Appearance ED: well developed HEENT Reports normocephalic and head/scalp atraumatic Eyes PERRL and EOMs intact bilaterally Neck supple Neck Narrative: No cervical midline or paraspinal tenderness. Chest Wall inspection of chest normal Resp normal respiratory effort Cardio regular rate and regular rhythm GI non-tender Palpation: soft Extremity normal to inspection Extremity Narrative: Mild tenderness to the distal aspect of the right forearm. No obvious deformity. Minimal edema. Full range of motion at the wrist, elbow, and should er. Strong hand grasp with normal sensation and good cap refill. Neuro oriented x3 and no sensory deficits noted Sensorium / Orientation: alert Motor Exam: strength 5/5 throughout Psych mental status grossly normal Skin no rashes or lesions noted MDM MDM MDM Narrative Medical decision making narrative: X-rays of the right humerus and forearm obtained to evaluate for possible fracture. Treatment and Re-Evaluation Narrative: Right forearm and right humerus x-rays per my interpretation reveal no evidence of fracture. Radiology interpretation reviewed and agrees. Test results discussed with the patient. Jose E wrap was applied to the right forearm and wrist. I will write her work restrictions for lifting. I will write her prescription strength naproxen. Discharge Plan Triage Chief Complaint: Upper Extremity Injury ED Provider: Jessica Espana Dx/Rx/DC Orders Clinical Impression: Forearm strain Instructions: ED Muscle Strain, Extremity Prescriptions: New naproxen [Naprosyn] 500 mg tablet 500 mg PO BID PRN (Reason: pain) Qty: 20 0RF No Action sulfamethoxazole-trimethoprim [Bactrim DS] 800-160 mg tablet 1 tab PO BID Qty: 14 0RF metformin 500 mg tablet 500 mg PO BID 30 Days Qty: 60 0RF Stand Alone Forms: ED Work / School Excuse Primary Care Provider: Care Physician,No Primary Referrals: Marcy Li DO [Med Staff - Active Staff] - As Needed Care Physician,No Primary [Primary Care Provider] - Disposition Disposition: Home, Self Care
== END 2023-02-18 16:13 | disposition home or self-care (01) ==
PROVIDERS: Emergency Provider Emergency Medicine; Visit Provider Emergency Medicine
DX: S46.911A Strain of unspecified muscle, fascia and tendon at shoulder and upper arm level, right arm, initial encounter (principal); F17.210 Nicotine dependence, cigarettes, uncomplicated; W00.0XXA Fall on same level due to ice and snow, initial encounter
CPT/HCPCS: 73060; 73090; 99282

== ENCOUNTER 2023-06-18 22:22 | Emergency (ER) | payer MEDICAID, SELFPAY ==
[2023-06-18 22:22] VITALS: BP 203/93; PULSE 92; RESP 16; TEMP 35.6
[2023-06-18 22:23] VITALS: BP 203/93; PULSE 92; RESP 16; TEMP 35.6; BMI 38.8
--- NOTE | 2023-06-18 22:45 | ED.VIS.LOWEX ---
HPI History of Present Illness Chief Complaint: Lower Extremity Injury Informant: patient Narrative Narrative: Presents with bilateral lower leg pain for the past 3 weeks. Starts in the anterior thigh radiates in the front then to the back of her ankle. States sharp sensations. Denies trauma. Denies back pain. Denies loss of bowel or bladder control. History of diabetes. Has not been told of any neuropathy. She states the right side have subsided she has been using [id number] naproxen every 4 hours. Denies any abdominal pain or bloody stools. Denies any fevers. She does follow PCP through [facility]. Reports doctor in Dr. Renteria's office. Prior similar symptoms: No PFSH PFSH Home Medications sulfamethoxazole 800 mg-trimethoprim 160 mg tablet (Bactrim DS) 1 tab PO BID #14 tabs 01/18/21 [Rx Last Taken Unknown] metformin 500 mg tablet 500 mg PO BID 30 days #60 tabs 06/11/21 [Rx Last Taken Unknown] naproxen 500 mg tablet (Naprosyn) 500 mg PO BID PRN pain #20 tabs 02/18/23 [Rx Last Taken Unknown] gabapentin 300 mg capsule 300 mg PO QHS #30 caps 06/18/23 [Rx Last Taken Unknown] Allergy/AdvReac Type Severity Reaction Status Date / Time diflunisal [From Dolobid] Allergy Shortness Verified 06/18/23 22:23 of breath Penicillins AdvReac Vomiting Verified 06/18/23 22:23 Social History Smoking Status: Current every day smoker tobacco type: cigarettes ROS ROS ED Constitutional Constitutional ED: Denies chills, fever(s) or sweats Eyes Eyes: Denies change in vision ENT ENT ED: Denies dysphagia or sore throat Cardiovascular Cardiovascular: Denies chest pain, leg edema, palpitations or racing heartbeat Respiratory/Chest Respiratory/Chest: Denies cough, dyspnea or dyspnea on exertion Gastrointestinal Gastrointestinal: Denies abdominal pain, diarrhea, nausea or vomiting Genitourinary Genitourinary ED: Denies dysuria, hematuria or urinary frequency Musculoskeletal Musculoskeletal: Reports extremity pain; Denies back pain or neck pain Integumentary Denies rash or wounds Neurologic Neurologic: Denies headache(s), paresthesias or weakness EXAM Physical Exam Const Vital Signs: 06/18/23 22:23 06/18/23 22:22 06/18/23 22:48 Temperature 96.0 F L 96.0 F L Temperature Source Temporal Temporal Pulse Rate 92 92 Respiratory Rate 16 16 Blood Pressure 203/93 H 203/93 H 143/96 H Blood Pressure Mean 129 129 111 Positive well nourished and well developed General Appearance ED: well developed and NAD HEENT Reports moist mucous membranes normocephalic and atraumatic Eyes PERRL, EOMs intact bilaterally and conjunctivae normal General Eye ED: Yes normal appearance of both eyes Neck no lymphadenopathy and supple General: Negative for tenderness Chest Wall Chest: Negative for tenderness Resp normal respiratory effort and normal air movement Effort and Inspection: symmetric chest movement; Negative for respiratory distress Cardio regular rate, regular rhythm and no murmurs Peripheral Pulses: pulses 2+ throughout GI normal to inspection, nondistended, normoactive bowel sounds and non-tender Palpation: Negative for guarding or rebound tenderness present Back/Spine no CVA tenderness and no thoracic nor lumbar tenderness Extremity normal to inspection Extremity Narrative: Bilateral lower extremity: Soft compartments of thigh and lower leg. No medial thigh or calf tenderness. No swelling. Straight leg test negative bilaterally. Pulses are intact distally. General Extremety ED: Negative for edema or tenderness General Extremity: Negative for edema Neuro oriented x3 and no sensory deficits noted Sensorium / Orientation: awake and alert Skin no rashes or lesions noted and no wounds MDM MDM MDM Narrative Medical decision making narrative: Interventions / MDM: Differential diagnosis: Neuropathy Diagnosis considered but do not suspect: No clinical DVT regions, no clinical compartment syndrome. My EKG interpretation: N/A Imaging independently reviewed and interpreted by myself: N/A External documents reviewed: N/A Test considered but not ordered:N/A ED course: Clinically concerns for neuropathy symptoms. No compartment syndrome. Initial elevated blood pressure rechecked down to 143/97 without any intervention. Patient started on gabapentin. Discussed appropriate use of her naproxen for twice a day. Outpatient follow-up. All questions were answered. Re-evaluation: stable Disposition discussed with patient/family/significant other: Patient Case discussed with consulting clinician: N/A This note was generated with [employer] dictation software. It may contain incorrect words, spelling, and punctuation that were not noted in checking the note before signing. Discharge Plan Triage Chief Complaint: Lower Extremity Injury ED Provider: Giovanni Evans Dx/Rx/DC Orders Clinical Impression: Neuropathy, Elevated blood pressure reading without diagnosis of hypertension, History of diabetes mellitus Instructions: ED Neuropathy, Peripheral Prescriptions: New gabapentin 300 mg capsule 300 mg PO QHS Qty: 30 0RF No Action sulfamethoxazole-trimethoprim [Bactrim DS] 800-160 mg tablet 1 tab PO BID Qty: 14 0RF metformin 500 mg tablet 500 mg PO BID 30 Days Qty: 60 0RF naproxen [Naprosyn] 500 mg tablet 500 mg PO BID PRN (Reason: pain) Qty: 20 0RF Primary Care Provider: Care Physician,No Primary Referrals: Care Physician,No Primary [Primary Care Provider] - Activity Restrictions/Additional Instructions: Interval history exam concerns for peripheral neuropathy lower extremity. Symptoms are not in areas for concerning blood clot. Take gabapentin as prescribed. Use naproxen every 12 hours not every 4 hours. Your blood pressure was elevated on arrival however recheck down to 143/96 without any intervention. Follow-up with your doctor for reevaluation. Disposition Disposition: Home, Self Care Discharge Date/Time: 06/18/23 23:21
[2023-06-18 22:48] VITALS: BP 143/96
== END 2023-06-18 23:21 | disposition home or self-care (01) ==
PROVIDERS: Emergency Provider Emergency Medicine; Visit Provider Emergency Medicine
DX: E11.40 Type 2 diabetes mellitus with diabetic neuropathy, unspecified (principal); M79.661 Pain in right lower leg; M79.662 Pain in left lower leg; R03.0 Elevated blood-pressure reading, without diagnosis of hypertension; F17.210 Nicotine dependence, cigarettes, uncomplicated
CPT/HCPCS: 99282

== ENCOUNTER 2024-06-18 23:06 | Emergency (ER) | payer SELFPAY ==
[2024-06-18 23:07] VITALS: BP 257/99; PULSE 98; RESP 18; TEMP 36.6; O2SAT 100; BMI 41.1
--- NOTE | 2024-06-18 23:33 | EKG12_ITS ---
Test Reason : CP Blood Pressure : */* mmHG Vent. Rate : 95 BPM Atrial Rate : 95 BPM P-R Int : 136 ms QRS Dur : 86 ms QT Int : 360 ms P-R-T Axes : 41 22 43 degrees QTcB Int : 452 ms Normal sinus rhythm Normal ECG Confirmed by YARELIS HENDERSON, MANFRED ([id number]), commercial production editor REJI OLSON [id number]) on 06/20/2024 8:20:59 AM Referred By: Confirmed By: MANFRED SANTOYO MD
[2024-06-18 23:38] VITALS: BP 130/88; PULSE 95; RESP 17; O2SAT 98
--- NOTE | 2024-06-18 23:50 | RAD_ITS ---
PROCEDURE: CHEST PA AND LATERAL 06/18/2024 REASON FOR EXAM: CHEST PAIN TECHNIQUE: Frontal and lateral views of the chest. COMPARISON: None. FINDINGS: Mild bilateral basilar atelectatic pulmonary changes. There is no demonstrated pleural abnormality. Normal heart and pericardium. Normal mediastinum and slava. Normal visualized pulmonary arteries. Normal visualized aortic arch and descending thoracic aorta. Normal visualized thoracic spine. Normal visualized ribs, clavicles, and shoulders. There is no demonstrated abnormality of the visualized soft tissue structures of the upper abdomen. RAD/Chest PA and Lateral IMPRESSION: Mild bilateral basilar atelectatic pulmonary changes. Reading [facility] [address]
[2024-06-18 23:58] LABS: Anion Gap 12 (5-15); BUN 16 mg/dL (4-19); BUN/Creat Ratio 14.8 RATIO (10-20); Calcium,Total 9.2 mg/dL (7.6-11.0); Carbon Dioxide 19.9 mmol/L (21.0-32.0); Chloride 101 mmol/L (98-108); Creatinine, Serum 1.06 mg/dL (0.70-1.20); EST Glomerular Filtration Rate 65 (>60); Estimated Creatinine Clearance 70.67 ml/min (50-250); Glucose 395 mg/dL (70-99); Lipase 45 U/L (13-75); Magnesium 1.9 mg/dL (1.5-2.2); Potassium 4.1 mmol/L (3.3-5.1); Sodium Level 133 mmol/L (133-145)
[2024-06-19 00:07] VITALS: BP 122/71; PULSE 95; RESP 17; O2SAT 98
[2024-06-19 00:16] LABS: Absolute Lymphocyte Count 3.62 X10^3/uL (0.83-4.51); Absolute Neutrophil Count 7.5 X10^3/uL (2.0-7.7); Basophil# 0.08 X10^3/uL; Basophil% 0.7 % (0-1); Eosinophil# 0.12 X10^3/uL; Hematocrit 44.5 % (37-47); Hemoglobin 15.2 g/dL (12.0-15.0); Lymphocyte # 3.62 X10^3/ul (0.83-4.51); Lymphocyte % 29.8 % (19-41); Mean Corp Hgb Conc 34.2 g/dL (32-36); Mean Corpuscular Hgb 30.7 pg (27.0-32.0); Mean Corpuscular Volume 89.9 fL (81-99); Mean Platelet Vol. 11.7 fl (6.2-12.0); Monocyte# 0.78 X10^3/uL; Monocyte% 6.4 % (0-10); NRBC Flagged by Analyzer 0 % (0-5); Neutrophil # 7.48 X10^3/uL (2.7-7.7); Neutrophil % 61.5 % (47-70); Platelet Count 247 K/mm3 (150-450); RBC Distribution Width CV 12.9 % (11.6-14.6); RBC Distribution Width SD 42.2 fl (35.1-43.9); Red Blood Count 4.95 M/mm3 (4.2-5.4); White Blood Count 12.2 K/mm3 (4.4-11.0)
[2024-06-19 00:20] LABS: Troponin T High Sensitivity < 6 ng/L (<=14)
[2024-06-19 01:00] VITALS: BP 129/79; PULSE 88; RESP 18; O2SAT 95
[2024-06-19 01:44] LABS: Troponin T High Sens 2 HR 10 ng/L (<=14)
--- NOTE | 2024-06-19 01:49 | EDS_ITS ---
HPI History of Present Illness Chief Complaint: Chest Pain Informant: patient Narrative Narrative: Patient is a 49-year-old female who reports a past medical history of prediabetes but states she is not on any medication. She states over the last day she has noticed intermittent midsternal chest discomfort. She states it feels like there is a squeezing sensation in her mid chest. She states this typically occurs while at rest and will last for 5 to 10 minutes and then resolve and seems to improve with activity. She reports there is no radiation of the pain and she denies any bouts of nausea vomiting diaphoresis or shortness of breath. She states that as the symptoms have been recurrent she is concerned this could be cardiac in nature and therefore comes in for evaluation. [facility] Medical History (Updated 06/19/24 @ 02:[address] Kenneth James, DO) Pre-diabetes Home Medications ?Medication ?Instructions ?Recorded ?Last Taken ?Type metformin 500 mg tablet 500 mg PO BID 30 days #60 ta bs 06/11/21 Unknown Rx gabapentin 300 mg capsule 300 mg PO QHS #30 caps 06/17 Unknown Rx metformin 500 mg tablet 500 mg PO BID 30 days #60 ta bs 06/19/24 Unknown Rx Allergy/AdvReac Type Severity Reaction Status Date / Time diflunisal (From Dolobid) Allergy Shortness Verified 06/18/24 23:08 of breath Penicillins AdvReac Vomiting Verified 06/18/24 23:08 Family History no significant family his Surgical History (Updated 06/18/24 @ 23:24 by Ronak Parr) Hx of cholecystectomy History of delivery Social History Smoking Status: Current every day smoker tobacco type: cigarettes ROS ROS ED Constitutional Constitutional ED: Denies chills or fever(s) Eyes Eyes: Denies change in vision ENT ENT ED: Denies sore throat Cardiovascular Cardiovascular: Reports chest pain; Denies palpitations or racing heartbeat Respiratory/Chest Respiratory/Chest: Denies cough or dyspnea Gastrointestinal Gastrointestinal: Denies abdominal pain, diarrhea, nausea or vomiting Genitourinary Genitourinary ED: Denies dysuria Musculoskeletal Musculoskeletal: Denies back pain Integumentary Denies rash Neurologic Neurologic: Denies headache(s) Hematologic/Lymphatic Hematologic/Lymphatic: Denies easy bleeding or easy bruising EXAM Physical Exam Const Vital Signs: 06/18/24 23:07 06/18/24 23:20 06/18/24 23:38 Temperature 97.8 F Temperature Source Oral Pulse Rate 98 95 Respiratory Rate 18 17 Respiratory Effort Normal Non-Labored Blood Pressure 257/99 H 130/88 H Blood Pressure Mean 151 102 Pulse Ox 100 98 Oxygen Delivery Method Room Air Room Air 06/19/24 00:07 06/19/24 01:00 06/19/24 01:53 Temperature 97.8 F Temperature Source Pulse Rate 95 88 85 Respiratory Rate 17 18 18 Respiratory Effort Blood Pressure 122/71 H 129/79 H 137/90 H Blood Pressure Mean 88 95 105 Pulse Ox 98 95 95 Oxygen Delivery Method Room Air Room Air Positive well nourished, well developed and obese General Appearance ED: well developed; Negative for pallor Nutritional Appearance: obese HEENT HEENT Narrative: Normocephalic atraumatic Eyes PERRL and EOMs intact bilaterally General Eye ED: Negative for scleral icterus Neck supple and no JVD Neck Narrative: No nuchal rigidity or meningeal signs Chest Wall palpation of chest normal Chest Narrative: No bony deformity or crepitance or pain with palpation of the chest wall Resp normal respiratory effort Resp Narrative: Breath sounds are diminished throughout with rhonchi in the bilateral bases consistent with history of smoking but no signs of respiratory distress Cardio regular rate and regular rhythm Rate: other Other Details: Heart is regular rate and rhythm without murmurs rubs or gallops Radial and carotid pulses are equal and symmetric GI non-distended and no masses GI Narrative: Abdomen is obese soft and nondistended with normal active bowel sounds. There is mild pain with palpation in the midepigastric region without voluntary guarding or rigidity or pulsatile mass. Auscultation: normoactive bowel sounds Palpation: soft Extremity normal to inspection Extremity Narrative: No asymmetric edema no pitting edema negative Homans' sign bilaterally. Neuro oriented x3, CN's II-XII intact bilaterally and no sensory deficits noted Sensorium / Orientation: alert Motor Exam: strength 5/5 throughout Psych mental status grossly normal Skin no rashes or lesions noted General Skin Exam: Negative for jaundice or pallor MDM MDM MDM Narrative Medical decision making narrative: Patient's initial blood pressure reading upon arrival was drastically elevated but I feel this is false as she was talking and moving during the time that the blood pressure was being taken. Once she sat down and settled down her blood pressure reduced to a normal value without any type of medication. She reported intermittent chest discomfort which could be related to acute coronary syndrome versus Prinzmetal's angina versus cardiac arrhythmia versus lung pathology such as pneumonia or pneumothorax. As she also has upper abdominal discomfort it could be due to pancreatitis. Secondary to this basic blood work was obtained with chest x-ray. EKG is sinus rhythm without ischemic changes or dysrhythmia changes. Initial troponin is normal at less than 6 and the 2-hour delta remains normal at 10 going against any obvious signs of ACS. The patient's blood sugar is elevated at 395 however she does not have any findings concerning for DKA or HHS. She was informed that based on this value she is no longer prediabetic but is truly diabetic. Secondary to this she will be placed on metformin which she states she was on previously but has not been taking for multiple months. She was strongly advised that she needs to follow-up with the family doctor as she will require more in-depth treatment for her new onset diabetes. However at this time the patient has not had chest discomfort while in the ER without medication her blood pressure reduced to a normal value and her cardiac enzymes have been normal going against ACS. Therefore there is no need for inpatient evaluation and she is otherwise safe for discharge History & Record Review Discussion w/independent historian: Patient Lab Data Attestation: I reviewed the patient's lab results. Labs: Laboratory Results - last 24 hr 06/18/24 06/19/24 23:17 01:15 WBC 12.2 H RBC 4.95 Hgb 15.2 H Hct 44.5 MCV 89.9 MCH 30.7 MCHC 34.2 RDW Std Deviation 42.2 RDW Coeff of Eulalio 12.9 Plt Count 247 MPV 11.7 Immature Gran % (Auto) 0.600 Neut % (Auto) 61.5 Lymph % (Auto) 29.8 [place] % (Auto) 6.4 Eos % (Auto) 1.0 Baso % (Auto) 0.7 Absolute Neuts (auto) 7.5 Absolute Lymphs (auto) 3.62 Nucleated RBC % 0 Sodium 133 Potassium 4.1 Chloride 101 Carbon Dioxide 19.9 L Anion Gap 12 BUN 16 Creatinine 1.06 Estim Creat Clear Calc 70.67 Est GFR (MDRD) Non-Af 65 BUN/Creatinine Ratio 14.8 Glucose 395 H Calcium 9.2 Magnesium 1.9 Troponin T High Sens < 6 Troponin T Hi Sens 2 Hr 10 Lipase 45 Radiography Diagnostic Testing: Clinical Impression(s) from Imaging Studies Chest X-Ray 06/18/24 23:50 IMPRESSION: Mild bilateral basilar atelectatic pulmonary changes. Reading Location: [place] [id number] Chest x-ray as interpreted by the emergency medicine physician reveals bilateral atelectatic changes without acute infiltrate pneumothorax pleural effusion or widening the mediastinum Discharge Plan Triage Chief Complaint: Chest Pain ED Provider: Kenneth James Dx/Rx/DC Orders Clinical Impression: Nonspecific chest pain, Hyperglycemia, Tobacco abuse Instructions: High Blood Sugar (Hyperglycemia), ED Chest Pain, Uncertain Cause Prescriptions: New metformin 500 mg tablet 500 mg PO BID 30 Days Qty: 60 0RF No Action metformin 500 mg tablet 500 mg PO BID 30 Days Qty: 60 0RF gabapentin 300 mg capsule 300 mg PO QHS Qty: 30 0RF Stand Alone Forms: Work / School Excuse Primary Care Provider: Care Physician,No Primary Referrals: Charlie Hook MD [Med Staff - Active Staff] - (Hyperglycemia/new onset diabetes) Care Physician,No Primary [Primary Care Provider] - Activity Restrictions/Additional Instructions: Your blood sugar was 395 today and a random blood sugar over 220 classifies as diabetic. Take the metformin as directed to help control your sugars and follow-up with the family doctor to discuss further testing and medications to help with your blood sugar. Your workup today for your heart revealed no signs of active cardiac damage or abnormal cardiac rhythm. Print Language: [place] Disposition Disposition: Home, Self Care Discharge Date/Time: 06/19/24 01:57
[2024-06-19 01:53] VITALS: BP 137/90; PULSE 85; RESP 18; TEMP 36.6; O2SAT 95
== END 2024-06-19 01:57 | disposition home or self-care (01) ==
PROVIDERS: Emergency Provider Emergency Medicine; Visit Provider Emergency Medicine
DX: R07.89 Other chest pain (principal); E11.65 Type 2 diabetes mellitus with hyperglycemia; Z79.84 Long term (current) use of oral hypoglycemic drugs; F17.210 Nicotine dependence, cigarettes, uncomplicated; E66.9 Obesity, unspecified
CPT/HCPCS: 71046; 80048; 83690; 83735; 84484; 85025; 93005; 99283; A4216